=== PATIENT | female | born 1965 | race Caucasian/White ===

== ENCOUNTER 2019-04-13 10:07 | Observation (INO) ==
[2019-04-13] MEDS ORDERED: ASPIRIN PO ONE (10:41)
--- NOTE | 2019-04-13 10:57 | EKG Report ---
Test Performed on : 04/13/2019 10:31:13 AM Test Reason : multiple comp pressure headache Blood Pressure : / mmHG Vent. Rate : 074 BPM Atrial Rate : 074 BPM P-R Int : 114 ms QRS Dur : 078 ms QT Int : 346 ms P-R-T Axes : 055 016 047 degrees QTc Int : 384 ms Normal sinus rhythm. Low voltage QRS Borderline ECG When compared with ECG of 29-JUL-2018 09:51, No significant change was found Unconfirmed Result
--- NOTE | 2019-04-13 10:57 | PROVIDER DOCUMENTATION ---
HPI-Chest Pain - General Chief Complaint: Headache Stated Complaint: HEADACHE / NECK Time Seen by Provider: 04/13/19 10:34 Allergies/Adverse Reactions: Patient Allergies Allergy/AdvReac Type Severity Reaction Status Date / Time hydrocodone [From [place]] Allergy Unknown Verified 07/29/18 10:21 Penicillins Allergy Unknown Verified 07/29/18 10:21 Sulfa (Sulfonamide Allergy Unknown Verified 07/29/18 10:21 Antibiotics) Home Medications: Home Medication List Medication Instructions Recorded Confirmed Last Taken Type Levothyroxine Sodium 175 mcg PO DAILY 04/10/17 07/29/18 04/09/17 History Levothyroxine [Synthroid] 150 microgm PO DAILY #30 tab 07/29/18 Unknown Rx Tramadol [Ultram] 50 mg PO Q6H PRN PRN #20 tab 07/29/18 Unknown Rx - History of Present Illness-CP Nature of Presenting Problem: 53 YOF PRESENTS WITH MULTIPLE COMPLAINTS: SHE REPORTS SOME L JAW PAIN AND SWELLING (HX OF THIS DUE TO SALAVIA GLAND ISSUES), CP THAT IS DECRIBED HEAVINESS AND RADIATES DOWN THE L SHOULDER AND WAS ACCOMPANIED BY NAUSEA AND SOME SOB BLURRED VISION IN THE L EYE, AND TINGLING IN L ARM ALL BEGINNING ON MONDAY. Location: reports: substernal Chest Pain Radiation: reports: arms, neck, shoulders Quality of Pain: reports: other (HEAVINESS) Onset/Duration: other (BEGAN ON MONDAY) Timing: still present Context/Activities at Onset: reports: none Modifying Factors: improves with: nothing Associated Symptoms: reports: denies symptoms Nitro Today/Relief: no nitro taken today Aspirin Treatment Today: 325 mg x 1, provided by ED Similar Symptoms Previously?: No Recently Seen Here or By Another Healthcare Provider: No Review of Systems - Adult - REVIEW OF SYSTEMS - ADULT Constitutional: reports: no symptoms reported. denies: see HPI, chills, fever, fatique, night sweats, weight gain, weight loss, other Eyes: reports: no symptoms reported. denies: see HPI, discharge, dry eyes, decreased vision, blurred vision, double vision, eye pain, redness, other Ears, Nose, Mouth & Throat: reports: see HPI, other (L JAW PAIN, FACIALL SWELLING ON L, NO DENTAL DECAY) Cardiovascular: reports: see HPI, chest pain. denies: no symptoms reported, edema, heart murmur, irregular heart rate, orthopnea, palpitations, poor circulation, PND, syncope, other Respiratory: reports: see HPI, shortness of breath (WITH EPISODE OF CP). denies: no symptoms reported, chronic cough, cough, dyspnea on exertion, excessive sputum production, hemoptysis, pleurisy, wheezing, other Gastrointestinal: reports: no symptoms reported. denies: see HPI, abdominal pain, hematemesis, constipation, diarrhea, difficulty swallowing, frequent heartburn, nausea, poor appetite, rectal bleeding, vomiting, other Genitourinary: reports: no symptoms reported. denies: see HPI, dysuria, discharge, frequency, flank pain, frequent UTI's, hematuria, hesitency, incontinence, urinary retention, urgency, other Musculoskeletal: reports: no symptoms reported. denies: see HPI, bone pain, back pain, frequent leg cramps, joint pain, joint swelling, muscle aches, muscle weakness, neck pain, other Integumentary: reports: no symptoms reported. denies: see HPI, hives, hair loss, itching, mole changes, nail changes, rash, skin sores/ulcer, skin thickening, other Neurological: reports: paresthesia (L ARM), other (BLURRED VISION IN L EYE). denies: no symptoms reported, see HPI, ataxia, dizziness/vertigo, headache/migraines, loss of balance, numbness, seizure, slurred speech, syncope, tremors Psychiatric: reports: no symptoms reported. denies: see HPI, anxiety, anti-depressant use, alcohol/drug dependence, depression, emotional problems, insomnia, panic attacks, suicidal thoughts, other Endocrine: reports: no symptoms reported. denies: see HPI, change in skin pigment, excessive sweating, goiter, cold intolerance, heat intolerance, increased hunger, increased thirst, polyuria, other Hematologic/Lymphatic: reports: no symptoms reported. denies: see HPI, blood clots, easy bruising, low blood count, lymphedema, prolonged bleeding, swollen lymph nodes, transfusions, other Allergic/Immunologic: reports: no symptoms reported. denies: see HPI, allergic reactions, allergic rhinitis, asthma, eczema, food allergy, frequent infections, hay fever, hives, positive PPD, urticaria, other Past History - Adult - PAST MEDICAL HISTORY-ADULT Review of Records: reports: Nursing Assessment Review, Social history reviewed & non-contributory. Major Childhood Illnesses: reports: denies history Cardiovascular: reports: denies history Respiratory: reports: denies history Gastrointestinal: reports: GERD Endocrine/Immune: reports: thyroid disorder - PRIOR SURGERIES/PROCEDURES Surgical/Procedure History: reports: cholecystectomy, hysterectomy, - IMMUNIZATION STATUS Childhood Immunizations: See Nurse Assessment Flu Vaccine: See Nurse Assessment Physical Exam-General - PHYSICAL EXAM-ADULT Initial Vital Signs Reviewed: Yes - CONSTITUTIONAL General Appearance: appears well, alert, no apparent distress - EYES Eyes: PERRL/EOMI - HEAD, EARS, NOSE, MOUTH & THROAT HENMT: normocephalic/atraumatic, moist mucous membranes, normal ENT inspection - NECK Neck: full range of motion, supple, tender lateral (L) - RESPIRATORY Respiratory: chest non-tender, lungs clear, normal breath sounds - CARDIOVASCULAR Cardiovascular: normal peripheral pulses, regular rate, rhythm, no edema, no gallop, no JVD - GASTROINTESTINAL (ABDOMEN) Abdominal Exam: normal bowel sounds, non tender, soft - LYMPHATIC Lymphatic: no adenopathy - MUSCULOSKELETAL Back Exam: normal inspection Extremity: normal range of motion, non-tender, normal gait - SKIN Integumentary: normal color, normal turgor, warm/dry - NEUROLOGIC Neurologic: grossly normal - PSYCHIATRIC Psych/Mental Status: normal mood/affect, oriented x 3 - HEART Score HEART Score: History: Slightly Suspicious HEART Score: ECG: Normal HEART Score: Age: 45-65 Years HEART Score: Risk Factors for Atherosclerotic Disease: 1 or 2 Risk Factors HEART Score: Troponin: < or = Normal Limit Total HEART Score:: 2 Progress - PLAN OF CARE/RESULTS Progress/Plan/Lab Results: Vital Signs - 8 hr 04/13/19 10:16 04/13/19 12:13 Temperature 98 F Pulse Rate 93 H 68 Respiratory Rate 18 14 Blood Pressure 124/72 111/61 O2 Sat by Pulse Oximetry 98 98 Laboratory Results - last 24 hr 04/13/19 04/13/19 04/13/19 11:25 11:25 11:25 WBC 7.12 RBC 5.31 Hgb 15.9 Hct 48.5 H MCV 91.3 MCH 29.9 MCHC 32.8 L RDW Std Deviation 12.5 Plt Count 279 MPV 10.0 Immature Gran % (Auto) 0.1 Neut % (Auto) 56.4 Lymph % (Auto) 32.2 [place] % (Auto) 9.3 Eos % (Auto) 1.7 Baso % (Auto) 0.3 Immature Gran # (Auto) 0.01 Neut # (Auto) 4.02 Lymph # (Auto) 2.29 [place] # (Auto) 0.66 H Eos # (Auto) 0.12 Baso # (Auto) 0.02 PT INR PTT (Actin FS) Sodium 142 Potassium 4.5 Chloride 105 Carbon Dioxide 27 Anion Gap 10 BUN 13 Creatinine 0.8 Estimated GFR/1.73 m2 > 60 BUN/Creatinine Ratio 16 Glucose 90 Calculated Osmolality 283 Calcium 9.3 Total Bilirubin 0.30 AST 18 ALT 19 Alkaline Phosphatase 88 Troponin T < 0.010 Total Protein 6.9 Albumin 4.2 Globulin 3.0 Albumin/Globulin Ratio 2.0 04/13/19 11:25 WBC RBC Hgb Hct MCV MCH MCHC RDW Std Deviation Plt Count MPV Immature Gran % (Auto) Neut % (Auto) Lymph % (Auto) [place] % (Auto) Eos % (Auto) Baso % (Auto) Immature Gran # (Auto) Neut # (Auto) Lymph # (Auto) [place] # (Auto) Eos # (Auto) Baso # (Auto) PT 13.2 INR 0.95 PTT (Actin FS) 27.9 Sodium Potassium Chloride Carbon Dioxide Anion Gap BUN Creatinine Estimated GFR/1.73 m2 BUN/Creatinine Ratio Glucose Calculated Osmolality Calcium Total Bilirubin AST ALT Alkaline Phosphatase Troponin T Total Protein Albumin Globulin Albumin/Globulin Ratio Orders Category Date Time Status Saline Loc NOW Care 04/13/19 10:[address] HEAD W/O CONTRAST [CT] Stat Exams 04/13/19 10:41 Completed cxr [CHEST-2 VIEWS] [RAD] Stat Exams 04/13/19 11:10 Completed CBC WITH ELECTRONIC DIFF [HEME] Stat Lab 04/13/19 11:25 Completed COMPREHENSIVE METABOLIC PANEL [CHEM] Stat Lab 04/13/19 11:25 Completed PROTIME WITH INR [COAG] Stat Lab 04/13/19 11:25 Completed PTT [COAG] Stat Lab 04/13/19 11:25 Completed T4 Stat Lab 04/13/19 11:25 Received TROPONIN T Stat Lab 04/13/19 11:25 Completed TSH Stat Lab 04/13/19 11:25 Received Aspirin Med 04/13/19 10:41 Discontinued 325 mg PO NOW ONE Ondansetron [Zofran] Med 04/13/19 12:27 Discontinued 4 mg IV NOW ONE EKG [EKG] Stat Ther 04/13/19 10:20 Draft Result Diagrams: 04/13/19 11:25 04/13/19 11:25 - EKG 1 Time of EKG reading by physician:: 10:40 EKG Read and Signed by:: Hunter Rodriguez EKG Interpretation (*Must complete 3 of following elements*): Normal Rate: 74 Rhythm: NSR WITH LOW VOLTAGE QRS [place]: normal QRS: normal VT Interval: normal ST Wave: normal Prior EKG Comparison: changes noted - XRAY 1 XRAY Study: Chest Impression: See EMR Report (CHEST-2 VIEWS - 04/13/2019 INDICATION: CP COMPARISON: 05/04/2017 FINDINGS: Stable faint linear scarring in the lateral left costophrenic angle. The lungs are clear. Heart size is normal. No pneumothorax or pleural effusion. IMPRESSION: Negative exam. Electronically signed by Reginald Joseph 04/13/2019 11:40 AM 04/13/19 1140 Interpreting Physician: Reginald Joseph MD Dictated Date/Time: 04/13/19 1139 cc: Brittni Barbosa; Kamaljit Smiley MD) - CT/MRI 1 CT Study: Head Impression: See EMR Report (CT HEAD W/O CONTRAST - 04/13/2019 INDICATION: BLURRED VISION COMPARISON: None FINDINGS: The ventricles and sulci are normal in size and contour. There are normal prominent perivascular spaces bilaterally. No intracranial mass or hemorrhage. The skull is intact. The sinuses mastoids and middle ears are clear. IMPRESSION: Negative exam. This exam was performed using automated exposure control, adjustment of mA or kV according to patient size, and/or use of iterative reconstruction technique Electronically signed by Reginald Joseph 04/13/2019 11:02 AM 04/13/19 1102 Interpreting Physician: Reginald Joseph MD Dictated Date/Time: 04/13/19 1102 cc: Brittni Barbosa; Kamaljit Smiley MD) Departure - Departure Date of Disposition Decision: 04/13/19 Time of Disposition Decision: 12:31 DIAGNOSIS: Chest pain Disposition: ADMITTED INPATIENT 09 Certified Medical Emergency: Emergent Condition: Stable Referrals and Follow-Ups: Kamaljit Smiley MD [Primary Care Provider] - - Critical Care Note This patient required my direct & personal management of CC.: No Attestation - Physician/ TERESA Attestation Patient care was provided by Advanced Practice Provider:: Yes Advanced Practice Provider:: Brittni Barbosa Advanced Practice Provider documentation review:: The Mid-level provider documentation, treatment plan and medical decision making was reviewed by the physician who agrees with all treatment and medical decision making by the MLP. The physician spent face to face time with patient:: No Advanced Practice Provider documentation review:: Supervising physician onsite a nd consulted in the evaluation and care of this patient. The physician did not have a face to face encounter with the patient.
--- NOTE | 2019-04-13 11:05 | Diag Imaging Result Doc PS360 ---
CT HEAD W/O CONTRAST - 04/13/2019 INDICATION: BLURRED VISION COMPARISON: None FINDINGS: The ventricles and sulci are normal in size and contour. There are normal prominent perivascular spaces bilaterally. No intracranial mass or hemorrhage. The skull is intact. The sinuses mastoids and middle ears are clear. IMPRESSION: Negative exam. This exam was performed using automated exposure control, adjustment of mA or kV according to patient size, and/or use of iterative reconstruction technique Electronically signed by Reginald Joseph 04/13/2019 11:02 AM
--- NOTE | 2019-04-13 11:42 | Diag Imaging Result Doc PS360 ---
CHEST-2 VIEWS - 04/13/2019 INDICATION: CP COMPARISON: 05/04/2017 FINDINGS: Stable faint linear scarring in the lateral left costophrenic angle. The lungs are clear. Heart size is normal. No pneumothorax or pleural effusion. IMPRESSION: Negative exam. Electronically signed by Reginald Joseph 04/13/2019 11:40 AM
[2019-04-13 11:47] LABS: BASO# 0.02 X1000 (0.0-0.2); BASO% 0.3 % (0.0-0.8); EOS# 0.12 X1000 (0.0-0.7); EOS% 1.7 % (0.0-10.0); HEMATOCRIT 48.5 % (37.0-47.0); HEMOGLOBIN 15.9 g/dL (12.0-16.0); IMM GRAN# 0.01 X1000 (0.0-0.04); IMM GRAN% 0.1 % (0.0-0.5); LYMPH# 2.29 X1000 (1.2-3.4); LYMPH% 32.2 % (20.5-51.1); MCH 29.9 PG (27-31); MCHC 32.8 g/dL (33-37); MCV 91.3 FL (81-99); MONO# 0.66 X1000 (0.11-0.59); MONO% 9.3 % (1.7-9.3); NEUT# 4.02 X1000 (1.4-6.5); NEUT% 56.4 % (42.2-75.2); PLT 279 X1000 (130-400); RBC 5.31 XMIL (4.2-5.4); RDW 12.5 % (11.5-14.5); WBC 7.12 X1000 (4.8-10.8)
[2019-04-13 12:06] LABS: INR 0.95; PROTIME 13.2 Seconds (11.0-16.0)
[2019-04-13 12:07] LABS: PTT 27.9 Seconds (22.3-41.8)
[2019-04-13 12:09] LABS: POTASSIUM 4.5 mmol/L (3.5-5.1); SODIUM 142 mmol/L (136-145)
[2019-04-13 12:10] LABS: AGAP 10; ALBUMIN 4.2 g/dL (3.5-5.0); ALKALINE PHOSPHATASE 88 U/L (32-104); BUN 13 mg/dL (8-22); CALCIUM 9.3 mg/dL (8.8-10.2); CHLORIDE 105 mmol/L (98-107); COSMO 283; CREATININE 0.8 mg/dL (0.5-0.9); ESTIMATED GFR > 60; GLUCOSE 90 mg/dL (70-104); GOT 18 U/L (10-30); GPT 19 U/L (10-36); TCO2 27 mmol/L (25-35); TOTAL PROTEIN 6.9 g/dL (6.3-8.3)
[2019-04-13] MEDS ORDERED: ZOFRAN IV ONE (12:27)
--- NOTE | 2019-04-13 14:38 | EKG Report ---
Test Performed on : 04/13/2019 1:43:49 PM Test Reason : CP Blood Pressure : / mmHG Vent. Rate : 054 BPM Atrial Rate : 054 BPM P-R Int : 122 ms QRS Dur : 068 ms QT Int : 418 ms P-R-T Axes : 037 011 034 degrees QTc Int : 396 ms Sinus bradycardia. Otherwise normal ECG When compared with ECG of 13-APR-2019 10:31, (Unconfirmed) No significant change was found Unconfirmed Result
--- NOTE | 2019-04-13 15:16 | HISTORY AND PHYSICAL ---
PRIMARY CARE PHYSICIAN: Dr. Kamaljit Smiley. CHIEF COMPLAINT: Headache, neck and chest pain. HISTORY OF PRESENT ILLNESS: This is a 53-year-old female who presents the emergency room complaining of chest pain that she describes as a heaviness that radiates down to her left shoulder accompanied by nausea, blurred vision and shortness of breath with intermittent left arm tingling. She states this started Monday. She cannot pinpoint any exacerbating or alleviating factors. She denies prior episodes. She does have some left jaw pain and swelling. She states this is due to a previous submandibular gland removal. PAST MEDICAL HISTORY: 1. Gastroesophageal reflux disease. 2. Hypothyroid. PAST SURGICAL HISTORY: Cholecystectomy, , hysterectomy, hernia repair, tonsillectomy, colon surgery, submandibular gland removal. SOCIAL HISTORY: She denies alcohol, tobacco or illicit drug use. ALLERGIES: Hydrocodone, penicillin and sulfa with unknown allergies. HOME MEDICATIONS: Levothyroxine 150 mcg p.o. daily, vitamin D2 1 every week. REVIEW OF SYSTEMS: Discussed with patient with pertinent positives stated in the HPI. She denied any syncope or dizziness, any palpitations, productive cough, fever, chills, night sweats, any nausea, vomiting, diarrhea, constipation, black or bloody vomitus or stools, hematuria, dysuria, frequency, urgency. PHYSICAL EXAMINATION: GENERAL: This is a 53-year-old female who is sitting up on the stretcher in the emergency room in no distress. VITAL SIGNS: Blood pressure is 111/61 with a heart rate of 68, respirations 14, temperature is 98 degrees with room air saturations 98%. HEENT: Pupils are equal, round, react to light. EOMs are intact. Sclerae anicteric. Head is normocephalic, atraumatic. Mucous membranes are moist. NECK: Supple with trachea midline with some left lateral tenderness that she states is chronic due to her submandibular gland removal. CARDIOVASCULAR: Regular rate and rhythm. S1 and S2 appreciated. No murmur. She has no lower extremity edema with peripheral pulses palpable x4 extremities. PULMONARY: Breath sounds are clear. No increased work of breathing noted. Chest rises and falls symmetric with respiration. Chest wall is nontender to palpation. GASTROINTESTINAL: Abdomen soft, nontender, nondistended. Bowel sounds in all 4 quadrants. : She has no CVA or suprapubic tenderness. NEUROLOGIC: She is alert, oriented x3. SKIN: Warm and dry. LABS: WBC is 7.1 with hemoglobin 15.9, hematocrit 48.5, and platelets 279,000. Sodium 142, potassium 4.5, BUN 13, creatinine 0.8 with a glucose of 90. Troponin is less than 0.010. Chest x-ray revealed a negative exam. Lungs are clear. Heart size is normal. No pneumothorax or pleural effusion. CT of the head is negative exam. EKG sinus rhythm with a rate of 74. ASSESSMENT AND PLAN: 1. Chest pain. The patient will be admitted to the medical-surgical floor and placed on telemetry. repeat cardiac profile,troponin now and then in 6 hours x2. EKG now and in the morning lipid profile. healthy heart diet 2. Hypothyroid. TSH and T4 pending. 3. Headache. CT of the head was negative. We will follow. 4. Gastroesophageal reflux disease, Prilosec . 5. Left jaw pain. The patient has a history of removal submandibular gland and she states this is chronic since that surgery. 6. For deep vein thrombosis prophylaxis will use Lovenox, gastrointestinal prophylaxis Prilosec. Continue home medications as appropriate. Plan was discussed with Dr. Brito. Further treatments pending hospital course. Dictated by MISTY Pina for Miki Brito MD cc: MD Miki Sebastian MD [facility]ITAL[facility]
--- NOTE | 2019-04-13 17:30 | HISTORY AND PHYSICAL ---
ADDENDUM: I saw the patient [id number] and fully agree with the assessment and plan of Nurse Practitioner Flakita Cohen. This is a 53-year-old female who has been admitted with chest pain and has had negative cardiac enzymes at the emergency room with no ECG changes. We are going to monitor her here at the med/surg floor and follow the protocol. cc: Miki Brito MD
[2019-04-13] MEDS: TYLENOL PO PRN (21:57)
[2019-04-14 02:53] LABS: BASO# 0.02 X1000 (0.0-0.2); BASO% 0.3 % (0.0-0.8); EOS# 0.23 X1000 (0.0-0.7); EOS% 3.1 % (0.0-10.0); HEMATOCRIT 46.1 % (37.0-47.0); IMM GRAN# 0.01 X1000 (0.0-0.04); IMM GRAN% 0.1 % (0.0-0.5); LYMPH# 3.04 X1000 (1.2-3.4); LYMPH% 41.6 % (20.5-51.1); MCH 30.1 PG (27-31); MCHC 32.5 g/dL (33-37); MCV 92.4 FL (81-99); MONO% 9.6 % (1.7-9.3); MPV 10.2 FL (7.4-10.4); NEUT# 3.31 X1000 (1.4-6.5); NEUT% 45.3 % (42.2-75.2); PLT 269 X1000 (130-400); RBC 4.99 XMIL (4.2-5.4); RDW 12.6 % (11.5-14.5); WBC 7.31 X1000 (4.8-10.8)
[2019-04-14 03:00] LABS: CALCIUM 9.2 mg/dL (8.8-10.2); CREATININE 1.1 mg/dL (0.5-0.9); TOTAL BILIRUBIN 0.2 mg/dL (0.20-1.00); TOTAL PROTEIN 6.5 g/dL (6.3-8.3)
--- NOTE | 2019-04-14 06:29 | EKG Report ---
Test Performed on : 04/14/2019 06:18:07 AM Test Reason : CP Blood Pressure : / mmHG Vent. Rate : 064 BPM Atrial Rate : 064 BPM P-R Int : 126 ms QRS Dur : 078 ms QT Int : 424 ms P-R-T Axes : 056 041 053 degrees QTc Int : 437 ms Sinus rhythm. with marked sinus arrhythmia. Nonspecific T wave abnormality Abnormal ECG When compared with ECG of 13-APR-2019 13:43, (Unconfirmed) No significant change was found Confirmed by Guero Dacosta MD ([id number]) on 04/25/2019 3:25:11 PM
[2019-04-14] MEDS ORDERED: NITROGLYCERIN SL PRN (09:35)
[2019-04-14] MEDS: SYNTHROID PO SCH (10:45)
[2019-04-14] MEDS: LOVENOX SUBQ SCH (10:45)
[2019-04-14] MEDS: ASPIRIN PO SCH (10:45)
--- NOTE | 2019-04-14 13:43 | PROGRESS NOTE ---
DATE: 04/14/2019 SUBJECTIVE: The patient denies having any acute complaints this morning and does not have any chest pain. She does have some left jaw discomfort, however. OBJECTIVE: Vital Signs: Temperature 97.8 degrees, pulse 70 per minute, respiratory rate 16 per minute, blood pressure 97/50, pulse oximetry 97% on room air. General: The patient is alert and oriented x3. She does not appear to be in any acute distress. Cardiovascular: First and second heart sounds are audible without murmurs or gallops. Respiratory: Bilateral lung air entry is good without any rales or rhonchi. Abdomen: Benign. DIAGNOSTIC DATA: CBC and comprehensive metabolic panel are both nondiagnostic. Cholesterol levels are found to be elevated at 226 with LDL of 185 and HDL 49. Serial cardiac enzymes are found to be negative. IMPRESSION: 1. Chest pain. 2. Hypothyroidism. 3. Gastroesophageal reflux disease. 4. Dyslipidemia. PLAN: The patient will be continued here at the hospital and we will provide her supportive care. I am going to schedule her to have a stress study in the morning tomorrow. She will continue with her current medications including levothyroxine 150 mcg orally once daily and I will start her on rosuvastatin 20 mg orally once daily at bedtime. She will also continue with aspirin 81 mg orally once daily. She can probably be discharged home if her stress study is normal tomorrow morning. cc: Miki Brito MD
[2019-04-14] MEDS: TYLENOL PO PRN (20:33)
[2019-04-14] MEDS: CRESTOR PO SCH (20:33)
[2019-04-15] MEDS: SYNTHROID PO SCH ×2 (06:32→12:16)
[2019-04-15] MEDS: LOVENOX SUBQ SCH (12:09)
[2019-04-15] MEDS: ASPIRIN PO SCH (12:09)
[2019-04-15] MEDS: TYLENOL PO PRN (12:16)
--- NOTE | 2019-04-15 16:00 | Diag Imaging Result Document ---
PROCEDURE NAME: MYOCARDIAL PERF SCAN, STR/REST - 04/15/2019 SUMMARY: The patient was administered 12.5 mCi of technetium-99m sestamibi, after which resting cardiac images were obtained. Patient was subsequently exercised on treadmill according to a Tom protocol and exercised for a total of 5 minutes and 24 seconds achieving a maximum workload of stage II and 7.0 METS. With exercise, the heart increased from 82 beats per minute to 169 beats per minute representing 100% of maximal age predicted heart rate. The blood pressure increased from 98/64 to 140/80. With exercise, the patient reported moderate chest discomfort at peak exercise, which resolved in immediate recovery. At peak exercise, the patient was administered 33.3 mCi of technetium-99m sestamibi, after which gated stress cardiac images were obtained. Baseline ECG demonstrated sinus rhythm and mild diffuse nonspecific T-wave flattening. With exercise, there were no diagnostic ST-segment changes. SPECT images were reconstructed in the short, horizontal, long, vertical long axis. Review of these images demonstrated homogeneous uptake of radiopharmaceutical both stress and resting images. Gated images demonstrate a calculated left ejection fraction of 74% with symmetrical wall motion/thickening. CONCLUSIONS: 1. Fair aerobic capacity. Target heart rate achieved. 2. Clinically the patient reported transient moderate chest discomfort at peak exercise resolving in immediate recovery. 3. Electrocardiographically negative for exercise-induced myocardial ischemia. 4. Normal exercise sestamibi images. cc: MD Flakita Palma CRNP
[2019-04-15] MEDS: CRESTOR PO SCH (20:46)
--- NOTE | 2019-04-16 04:03 | PROGRESS NOTE ---
DATE: 04/15/2019 SUBJECTIVE: The patient notes she is still having chest pain to the left side of the chest, left jaw, left neck, headaches. She notes that the pain gets worse with moving of her neck. She states it has been fairly consistent although it does increase and decreased but never completely goes away. PHYSICAL EXAMINATION: Vital Signs: Temperature 97.6, pulse 76, respiratory rate 18, BP 113/47. General: The patient is awake, alert, currently she is in no distress. HEENT: Normocephalic. Neck: Supple. Cardiovascular: Regular rate. Chest: Clear. Abdomen: Soft. Extremities: Moves all extremities. ASSESSMENT: 1. Chest pain. 2. Hypothyroidism. 3. Headaches. 4. Chronic reflux. 5. Left jaw pain. PLAN: Although the pain does sound more musculoskeletal we are going to get a stress test and we will follow. Hopefully the stress test will be negative. If her symptoms improve she can be discharged home, otherwise we will need to try to adjust medications, possibly try muscle relaxants. cc: Yuval Shannon MD
[2019-04-16 04:51] VITALS: BP 101/65
[2019-04-16] MEDS: SYNTHROID PO SCH ×2 (05:29→06:00)
[2019-04-16] MEDS: LOVENOX SUBQ SCH (08:59)
[2019-04-16] MEDS: ASPIRIN PO SCH (09:00)
[2019-04-16] MEDS: TYLENOL PO PRN (10:13)
--- NOTE | 2019-04-16 14:13 | DISCHARGE SUMMARY ---
ADMISSION DATE: 04/13/2019 DISCHARGE DATE: 04/16/2019 ADMISSION DIAGNOSIS: 1. Chest pain. 2. Hypothyroidism. 3. Headache. 4. GERD. 5. Left jaw pain. DISCHARGE DIAGNOSES: 1. Chest pain. 2. Hypothyroidism. 3. Headaches. 4. Chronic reflux. 5. Left jaw pain. CONSULTATIONS: None. SURGERIES/PROCEDURES: Had myocardial perfusion scan on 04/15/2019 looks like it was read by Dr. Salinas with results showing clinically patient reported transient moderate chest discomfort at peak exercise, resolving in immediate recovery. EKG was negative for exercise- induced myocardial ischemia so it was a normal stress test. HOSPITAL COURSE: 04/13/2019, Ms. Shantell Zimmerman is a 53-year-old female presented to [facility] with complaints of chest pain that went into the left jaw. It felt like it was heavy and radiated down into her shoulder as well with some nausea, blurred vision, shortness of breath and intermittent left arm tingling. Apparently it started the Monday prior to presentation. There was no pinpointing of exacerbating or alleviating factors. There are episodic events. There was noted some left jaw pain and swelling. Apparently that was due to a previous submandibular gland removal, according to the patient so she was kept here, had serial cardiac enzymes, EKGs, and stress tests, all was normal. It was felt to be more musculoskeletal related and will be discharged home. DISCHARGE VITAL SIGNS: Temperature 97.7 degrees, heart rate 61, respiratory rate is 16, blood pressure 101/65, O2 saturation 100% on room air. DISCHARGE LAB DATA: Labs on 04/14, white blood cells 7000, hemoglobin 15, hematocrit 46, platelet count 269,000, sodium 143, potassium 5.0, BUN 14, creatinine is 1.1, glucose 100, calcium 9.2, bilirubin 0.20, AST 16, ALT 17, CK 47, troponin less than 0.01. Albumin 4.0, triglycerides 145, total cholesterol 226. The TSH was low at 0.01. The T4 was 8.80. IMAGING: Head CT negative. Chest x-ray is negative. EKGs. Normal sinus rhythm, rate 74, QTc 384 hour. Sinus bradycardia rate 54, QTc 396, and normal sinus rhythm with sinus arrhythmia. Rate 64, QTc 437. DISCHARGE DIET: Heart healthy. DISCHARGE ACTIVITY: As tolerated. DISCHARGE FOLLOWUP: Followup with Kamaljit Smiley, primary care provider. DISCHARGE MEDICATIONS: 1. Calcium carbonate 1000 mg p.o. daily. 2. Synthroid 150 mcg p.o. daily. 3. Vitamin D3, 1000 units p.o. daily. 4. Aspirin 81 mg p.o. daily. 5. Crestor 20 mg p.o. nightly. 6. Flexeril 5 mg p.o. twice daily. 7. Omeprazole 40 mg p.o. daily. DISCHARGE INSTRUCTIONS: If her condition changes, contact physician and/or return to the emergency department. Judgment clear but not limited to, shortness of breath, increased fatigue, excessive bleeding, unexplained weight loss or gain, unmanageable pain, signs or symptoms of infection. DISCHARGE DISPOSITION: Home. Dictated by MISTY Whitaker for Rik Francois MD Addendum: Patient seen and examined by myself. Agree with MISTY note. It reflects my assessment and plan. Patient is being discharged in stable condition. Will be seen by PCP in a week. cc: MISTY Whitaker MD [facility]
== END 2019-04-16 12:21 | disposition home or self-care (01) | DRG 313 ==
LOC: P.ED 10:07 → P.MEDSURG 10:08 → INTOOBSV 10:08 → SUATTDRO 10:08
PROVIDERS: ATTEND Internal Medicine